=== PATIENT | female | born 1965 | race Caucasian/White ===

== ENCOUNTER 2024-07-16 13:28 | Emergency (ER) | payer OTHER ==
--- NOTE | 2024-07-16 14:16 | RAD REPORT ---
Procedure: Chest Single View HISTORY: Chest pain COMPARISON: none FINDINGS: Mild bilateral upper lobe opacities. Remainder lungs appear clear. No significant pleural effusion noted. The heart is normal size. Pacemaker leads in place IMPRESSION: Mild bilateral opacities may indicate pneumonia
--- NOTE | 2024-07-16 14:17 | RAD REPORT ---
EXAMINATION: CT HEAD WITHOUT CONTRAST CT CERVICAL SPINE WITHOUT CONTRAST CLINICAL INDICATION: Numbness TECHNIQUE: Axial CT images from the skull base to the vertex without intravenous contrast. Axial CT i mages through the cervical spine were obtained without intravenous contrast. Sagittal and coronal reformatted images were created from the data set. Coronal and sagittal reformatted images were creat ed from the data set. One or more of the following dose reduction techniques were used: Automated exposure control, adjustment of the mA and/or kV according to patient size, and/or iterative reconstr uction. Unless otherwise specified, incidental findings do not require dedicated imaging follow-up. [id number]. Comparison: none FINDINGS: Intracranial bleed not noted. Ventricles are normal in caliber. No significant hypodensity within the brain No extra-axial fluid collection. No fluid within the sinuses/mastoids No fracture or dislocation is seen involving the cervical spine. Mild spondylosis involves the cervical spine. No high-grade central/foraminal stenosis seen. Mild bilateral upper lobe opacities IMPRESSION: No acute intracranial abnormality noted A cervical fracture is not seen. No high-grade central/foraminal stenosis seen. If the patient continues to have symptoms to suggest i ntracranial/spinal pathology then MRI would be recommended If the patient continues to have symptoms to suggest acute EDGE INKER UPPERS/spinal pathology then MRI would be rec ommended Mild bilateral upper lobe opacities may indicate pneumonia
[2024-07-16] MEDS ORDERED: LORazepam 2 MG/ML VIAL ONE (14:30)
[2024-07-16 15:04] LABS: Absolute Basophils 0.1 K/uL (0-0.5); Absolute Eosinophils 0.4 K/uL (0-0.5); Absolute Lymphocytes (CBC) 2.1 K/uL (0.7-4.9); Absolute Monocytes 0.6 K/uL (0.1-1.3); Absolute Neutrophil 7.8 K/uL (1.8-8.0); Eosinophils % 3.3 % (0-4.4); Hematocrit 40.1 % (36.0-45.0); Hemoglobin 13.3 g/dL (12.0-15.0); Lymphocytes % 19.3 % (15.3-44.8); MCH 28.2 pg (27.0-35.0); MCHC 33.2 g/dL (32.0-36.0); MCV 84.9 fL (80-100); Monocytes % 5.8 % (3.3-12.3); Neutrophils % 70.6 % (41.7-73.7); Nucleated Red Blood Cells % 0.1 % (0-0); Platelets 324 thou/uL (152-406); RBC Red Blood Cell Count 4.73 M/uL (3.86-4.86); Red Cell Distribution Width 13.9 % (12.1-15.2); Specific Gravity 1.011 (1.005-1.030); Sqamous Epithelial <5 /HPF (None Seen); Urine Bacteria <20 /HPF (<20); Urine Bilirubin NEGATIVE (Negative); Urine Blood Negative (Negative); Urine Clarity Extremely Turbid (Clear); Urine Color Light-Yellow (Yellow); Urine Crystals Unidentified Few /HPF (None Seen); Urine Culture Reflex Order NOT NEEDED; Urine Glucose NEGATIVE (Negative); Urine Ketones NEGATIVE (Negative); Urine Microscopic Reflex YN ORDER UMIC; Urine Mucus Slight /HPF (None Seen); Urine Nitrite NEGATIVE (Negative); Urine Protein NEGATIVE (Negative); Urine RBC <5 /HPF (None Seen); Urine Urobilinogen Normal (Normal); Urine WBC <5 /HPF (<5); Urine WBC Clump Rare /HPF (None Seen); Urine Yeast (Budding) Few /HPF (None Seen); Urine pH 7.5 (5.0-7.0)
[2024-07-16] MEDS ORDERED: METHOCARBAMOL 1,000 MG/10 ML VIAL ONE (15:04)
[2024-07-16] MEDS ORDERED: NA CHLORIDE 0.9% 100 ML ONE (15:05)
[2024-07-16 15:08] LABS: D-Dimer 0.454 FEUug/mL (0-0.500); PT Prothrombin Time 11.5 SECONDS (9.4-12.5); Protime INR 1.03
[2024-07-16 15:16] LABS: Barbiturates NEGATIVE (NEGATIVE); Benzodiazepines NEGATIVE (NEGATIVE); Cocaine NEGATIVE (NEGATIVE); METHAMPHETAM NEGATIVE (NEGATIVE); Methadone NEGATIVE (NEGATIVE); Opiates NEGATIVE (NEGATIVE); Phencyclidine NEGATIVE (NEGATIVE); THC Cannibis NEGATIVE (NEGATIVE)
[2024-07-16 17:08] LABS: ALT/SGPT 29 U/L (13-56); AST/SGOT 23 U/L (15-37); Albumin 3.9 g/dL (3.4-5.0); Alkaline Phosphatase 91 U/L (45-117); Anion Gap 6.1 mEq/L (5.0-15.0); BUN Blood Urea Nitrogen 13 mg/dL (7-18); Bicarbonate 32 mEq/L (21-32); Bilirubin Direct < 0.2 mg/dL (0-0.2); Bilirubin Indirect, Calculated 0.2 mg/dL (0.2-0.8); Bilirubin Total 0.4 mg/dL (0.2-1.0); Globulin 3.8 g/dL (2.3-3.5); Glomerular Filtration Rate 73 ml/min (=/>90); Glucose Level 119 mg/dL (74-106); Magnesium 2.2 mg/dL (1.6-2.4); NT PRO-BNP 171 pg/mL (<125); Potassium 3.1 mEq/L (3.5-5.1); Protein, Total 7.7 g/dL (6.4-8.2); Sodium Level 139 mEq/L (136-145); Troponin High Sensitivity 9.8 pg/mL (<58.9)
[2024-07-16] MEDS ORDERED: POTASSIUM 25 MEQ EFFERV TAB ONE (17:26)
--- NOTE | 2024-07-16 18:23 | RAD REPORT ---
EXAMINATION: CTA CHEST PE CLINICAL INDICATION: Chest pain TECHNIQUE: 100 cc 370 Isovue administered intravenously. This examination was performed according to an angiographic protocol with 3D post-processing. This involves 3D reconstructions, MIPs, volume rendered images and/or shaded surface rendering. One or more of the following dose reduction techniqu es were used: Automated exposure control, adjustment of the mA and/or kV according to patient size, and/or iterative reconstruction. Unless otherwise specified, incidental findings do not require dedic ated imaging follow-up. [id number]. COMPARISON: No prior exam. FINDINGS: A pulmonary embolus is not seen. An aortic dissection not noted. No pleural effusion. No pericardial effusion. Mild to moderate left upper lobe opacities. Mild right upper and right middle lobe opacities IMPRESSION: No evidence of a pulmonary embolism Bilateral pulmonary opacities probably pneumonia
--- NOTE | 2024-07-16 18:38 | EDPHYS ---
Physician Documentation [facility] Name: Qi Quiroz Age: 58 yrs Sex: Female : 1965 Arrival Date: 07/16/2024 Time: 13:28 Bed 5 Private MD: ED Physician Jaswinder Frye HPI: 07/16 13:50 This 58 yrs old Female presents to ER via Wheelchair with complaints of Numbness. cp 15:00 The patient's problem is reported as paresthesias, in right upper extremity, in left cp upper extremity. Onset: The symptoms/episode began/occurred suddenly while in car today. 15:00 Duration: The episode is continuous. Associated signs and symptoms: Pertinent cp positives: neck and back pain times 1 week, nausea, chest heaviness, Pertinent negatives: headache, weakness, syncope. Severity of symptoms: in the emergency department the symptoms are unchanged despite home interventions. Patient's baseline: Neuro: alert and fully oriented, Motor: no deficits, Ambulation: walks without assistance, Speech: normal. Historical: - Allergies: 13:41 Latex, Natural Rubber; ap3 - PMHx: 13:41 Myocardial infarction; ap3 - PSHx: 13:41 pace maker-2020; ap3 - Immunization history:: Client reports receiving the 2nd dose of the Covid vaccine. - Infectious Disease History:: Denies. - Social history:: Smoking status: Patient denies any tobacco usage or history of. ROS: 13:55 Constitutional: HX per HPI cp 13:55 Constitutional: Negative for fever, cp 13:55 Eyes: Negative for vision loss, visual disturbance, 13:55 Cardiovascular: Positive for chest pain, 13:55 Respiratory: Positive for shortness of breath, Negative for cough, 13:55 Abdomen/GI: Positive for nausea, Negative for abdominal pain, vomiting, diarrhea, 13:55 Neuro: Positive for numbness, of the right hand, left hand, right arm and left arm, Negative for altered mental status, syncope, weakness, 13:55 All other systems are negative, Exam: 13:55 ECG was reviewed by the Attending Physician. cp 14:00 Constitutional: The patient appears in no acute distress, alert, awake, cp non-diaphoretic, non-toxic, well developed, well nourished, 14:00 Head/Face: Normocephalic, atraumatic. cp 14:00 Eyes: Periorbital structures: appear normal, Pupils: equal, round, and reactive to light and accomodation, Extraocular movements: intact throughout, Conjunctiva: normal, no exudate, no injection, Sclera: no appreciated abnormality, Lids and lashes: appear normal, bilaterally, 14:00 ENT: External ear(s): are unremarkable, Nose: is normal, Mouth: Lips: moist, Oral mucosa: pink and intact, moist, Posterior pharynx: is normal, airway is patent, no erythema, no exudate, 14:00 Neck: ROM/movement: pain, that is mild, limited range of motion, is not appreciated, 14:00 Respiratory: the patient does not display signs of respiratory distress, Respirations: normal, no use of accessory muscles, no evidence of nasal flaring, labored breathing, is not present, Breath sounds: are clear throughout, no decreased breath sounds, no stridor, no wheezing, 14:00 Abdomen/GI: Inspection: abdomen appears normal, Palpation: abdomen is soft and non-tender, in all quadrants, 14:00 Back: pain, that is mild, ROM is normal, 14:00 Skin: no rash present. 14:00 Neuro: Orientation: to person, place \T\ time. Mentation: is normal, Cerebellar function: is grossly normal, Motor: moves all fours, strength is normal, Sensation: numbness, that is mild, of the right hand and left hand, 15:05 Radiologist reports: no acute findings cp Vital Signs: 13:39 BP 113 / 74; Pulse 74; Resp 17; Temp 97.5; Pulse Ox 100% ; Weight 81.19 kg; Height 5 ap3 ft. 4 in. ; 15:01 BP 130 / 78; Pulse 79; Resp 18 S; Pulse Ox 99% on R/A; kc6 15:29 BP 129 / 72; Pulse 76; Resp 18 S; Pulse Ox 98% on R/A; kc6 16:56 BP 134 / 81; Pulse 70; Resp 18 S; Pulse Ox 100% on R/A; kc6 18:30 BP 123 / 79; Pulse 75; Resp 14 S; Temp 97.6(TE); Pulse Ox 98% on R/A; Pain 0/10; br2 20:00 BP 126 / 78; Pulse 71; Resp 16; Pulse Ox 98% ; vc1 20:45 BP 120 / 84; Pulse 80; Resp 21 S; Temp 97.3; Pulse Ox 97% on R/A; Pain 0/10; br2 13:39 Body Mass Index 30.72 (81.19 kg, 162.56 cm) ap3 18:30 Pain Scale: Adult br2 20:45 Pain Scale: Adult br2 MDM: 13:51 Medical Screening Exam initiated cp 18:38 Data reviewed: vital signs, nurses notes, lab test result(s), EKG, radiologic studies, cp CT scan, plain films, and as a result, I will discharge patient. 18:38 Differential diagnosis: CVA, TIA, spinal stenosis, acute ND, pulmonary embolism. cp Consideration of Admission/Observation Escalation of care including admission/observation considered. I considered the following discharge prescriptions or medication management in the emergency department Medications were administered in the Emergency Department. See MAR. Independent interpretation of the following test(s) in the Emergency Department EKG: See my EKG interpretation above. Counseling: I had a detailed discussion with the patient and/or guardian regarding the historical points, exam findings, and any diagnostic results supporting the discharge/admit diagnosis, lab results, radiology results, to return to the emergency department if symptoms worsen or persist or if there are any questions or concerns that arise at home. Response to treatment: the patient's symptoms have mildly improved after treatment, and as a result, I will discharge patient. 07/16 13:45 Order name: Basic Metabolic Panel; Complete Time: 17:18 cp 07/16 17:18 Interpretation: Normal except: K 3.1; GLUC 119; GFR 73. cp 07/16 13:45 Order name: CBC with Diff; Complete Time: 15:24 cp 07/16 15:24 Interpretation: Normal except: WBC 11.10. cp 07/16 13:45 Order name: D-Dimer; Complete Time: 15:24 cp 07/16 13:45 Order name: LFT's; Complete Time: 17:18 cp 07/16 13:45 Order name: Magnesium; Complete Time: 17:18 cp 07/16 13:45 Order name: NT PRO-BNP; Complete Time: 17:18 cp 07/16 13:45 Order name: PT-INR; Complete Time: 15:24 cp 10/18 13:45 Order name: Troponin HS; Complete Time: 17:18 cp 07/16 13:45 Order name: Urinalysis w/ reflexes; Complete Time: 15:24 cp 07/16 15:25 Interpretation: Normal except: [facility] Extremely Turbid; UPH 7.5; BYST Few. cp 07/16 13:45 Order name: UDS; Complete Time: 15:24 cp 07/16 13:45 Order name: XRAY Chest (1 view); Complete Time: 14:35 cp 07/16 13:45 Order name: CT Head C Spine; Complete Time: 14:35 cp 07/16 14:36 Interpretation: Reviewed report. cp 07/16 14:37 Order name: CT Chest For PE Angio; Complete Time: 18:24 cp 07/16 13:45 Order name: EKG; Complete Time: 13:46 cp 07/16 13:45 Order name: Cardiac monitoring; Complete Time: 14:31 cp 07/16 13:45 Order name: EKG - Nurse/Tech; Complete Time: 13:51 cp 07/16 13:45 Order name: IV Saline Lock; Complete Time: 14:57 cp 07/16 13:45 Order name: Labs collected and sent; Complete Time: 14:57 cp 07/16 13:45 Order name: O2 Per Protocol; Complete Time: 14:31 cp 07/16 13:45 Order name: O2 Sat Monitoring; Complete Time: 14:31 cp EC:55 Rate is 74 beats/min. Rhythm is regular, Paced. DE interval is normal. QRS interval is cp prolonged at 132 msec. QT interval is prolonged. T waves are Inverted in leads aVL, aVR. Interpreted by me. Reviewed by me. Administered Medications: 14:57 Drug: Ativan IVP 0.5 mg IVP once Route: IVP; Site: left antecubital; kc6 16:57 Follow up: Response: No adverse reaction; RASS: Alert and Calm (0) kc6 15:12 Drug: Methocarbamol IVPB 1 grams IVPB once over 1 hrs; (mix in NS 100 mL) Route: IVPB; kc6 Infused Over: 1 hrs; Site: left antecubital; 17:19 Follow up: Response: No adverse reaction; IV Status: Completed infusion; IV Intake: kc6 100ml 17:29 Drug: Potassium PO Effervescent Tablet 50 mEq PO once; dissolve in 4 ounces of water or kc6 juice Route: PO; 17:54 Follow up: Response: No adverse reaction kc6 19:19 Drug: LevaQUIN IVPB 750 mg IVPB once Route: IVPB; Site: left antecubital; br2 20:52 Follow up: IV Status: Completed infusion; IV Intake: 150ml br2 Disposition Summary: 07/16/24 18:38 Discharge Ordered Notes: Location: Home cp Condition: Stable cp Diagnosis - Pneumonia, unspecified organism cp - Hypokalemia cp - Paresthesia of skin cp - Dorsalgia, unspecified cp - Chest pain, unspecified cp - Cervicalgia cp Followup: cp - With: Private Physician - When: 2 - 3 days - Reason: Recheck today's complaints Discharge Instructions: - Discharge Summary Sheet cp - Acute Back Pain, Adult cp - Potassium Content of Foods cp - Community-Acquired Pneumonia, Adult cp - Hypokalemia cp - Heat Therapy cp Forms: - Medication Reconciliation Form cp - Antibiotic Education cp - Prescription Opioid Use cp - Patient Portal Instructions cp - Leadership Thank You Letter cp Prescriptions: - Anaprox DS 550 mg Oral Tablet - take 1 tablet ORAL route every 12 hours As needed; 20 tablet; Refills: 0, cp Product Selection Permitted - methocarbamol 750 mg Oral tablet - take 1 tablet ORAL route 3 times per day; 30 tablet; Refills: 0, Product cp Selection Permitted - levofloxacin 500 mg Oral tablet - take 1 tablet ORAL route once daily for 8-10 days; 9 tablet; Refills: 0, cp Product Selection Permitted Signatures: Dispatcher [employer] EDSD Jaswinder Dial PA PA cp Edelmira Conner RN RN ap3 Amee Ortiz RN RN kc6 Juanita Quinn RN RN br2 Corrections: (The following items were deleted from the chart) 07/17 19:54 07/16 15:00 Constitutional: HX per HPI cp cp
--- NOTE | 2024-07-16 18:38 | ER ---
Nurse's Notes [facility] Name: Qi Quiroz Age: 58 yrs Sex: Female : 1965 Arrival Date: 07/16/2024 Time: 13:28 Bed 5 Private MD: Diagnosis: Pneumonia, unspecified organism;Hypokalemia;Paresthesia of skin;Dorsalgia, unspecified;Chest pain, unspecified;Cervicalgia Presentation: 07/16 13:39 Chief complaint: Patient states: she was on her way to get a foot massage, when both of ap3 her hands and arms started feeling numb and tingling. patient reports having back pain for approx one week, and neck pain for approx a week as well. patient also states she felt flushed and nauseated. Coronavirus screen: At this time, the client does not indicate any symptoms associated with coronavirus-19. Ebola Screen: No symptoms or risks identified at this time. Initial Sepsis Screen: Does the patient meet any 2 criteria? No. Patient's initial sepsis screen is negative. Does the patient have a suspected source of infection? No. Patient's initial sepsis screen is negative. Risk Assessment: Do you want to hurt yourself or someone else? Patient reports no desire to harm self or others. Onset of symptoms is unknown. Care prior to arrival: None. Transition of care: patient was not received from another setting of care. 13:39 Method Of Arrival: Wheelchair ap3 13:50 Acuity: ALEXIA 2 ap3 Triage Assessment: 13:42 General: Appears uncomfortable, Behavior is cooperative, appropriate for age. Pain: ap3 Complains of pain in back and neck Pain began approx one week ago. Neuro: Level of Consciousness is awake, alert, obeys commands, Oriented to person, place, time, Reports numbness in right hand, left hand, right arm and left arm weakness in right hand, left hand, right arm and left arm. Cardiovascular: Patient's skin is warm and dry. Respiratory: Airway is patent Respiratory effort is even, unlabored, Respiratory pattern is regular, symmetrical. GI: Reports nausea. Historical: - Allergies: 13:41 Latex, Natural Rubber; ap3 - PMHx: 13:41 Myocardial infarction; ap3 - PSHx: 13:41 pace maker-2020; ap3 - Immunization history:: Client reports receiving the 2nd dose of the Covid vaccine. - Infectious Disease History:: Denies. - Social history:: Smoking status: Patient denies any tobacco usage or history of. Screenin:43 Abuse screen: Denies threats or abuse. Nutritional screening: No deficits noted. ap3 Tuberculosis screening: No symptoms or risk factors identified. 14:38 [facility] ED Fall Risk Assessment (Adult) History of falling in the last 3 months, kc6 including since admission No falls in past 3 months (0 pts) Confusion or Disorientation No (0 pts) Intoxicated or Sedated No (0 pts) Impaired Gait No (0 pts) Mobility Assist Device Used No (0 pt) Altered Elimination No (0 pt) Score/Fall Risk Level 0 - 2 = Low Risk Oriented to surroundings, Maintained a safe environment. Assessment: 14:58 General: Appears in no apparent distress. comfortable, well groomed, well developed, kc6 Behavior is calm, cooperative, appropriate for age. Pain: Denies pain. Neuro: Level of Consciousness is awake, alert, obeys commands, Oriented to person, place, time, situation, Appropriate for age [employer] are equal bilaterally Moves all extremities. Full function Gait is steady, Speech is normal, Facial symmetry appears normal, Pupils are PERRLA, Numbness in right hand and left hand Babinski is positive Reports dizziness, paresthesias in right hand and left hand. Cardiovascular: Reports chest pressure Heart tones S1 S2 present Capillary refill < 3 seconds Rhythm is ventricular pacer. Respiratory: Airway is patent Trachea midline Respiratory effort is even, unlabored, Respiratory pattern is regular, symmetrical. GI: No signs and/or symptoms were reported involving the gastrointestinal system. : No signs and/or symptoms were reported regarding the genitourinary system. EENT: No signs and/or symptoms were reported regarding the EENT system. Derm: No signs and/or symptoms reported regarding the dermatologic system. Skin is intact, is healthy with good turgor, Skin is pink, warm \T\ dry. Musculoskeletal: No signs and/or symptoms reported regarding the musculoskeletal system. Circulation, motion, and sensation intact. Capillary refill < 3 seconds, Range of motion: intact in all extremities. 15:28 Reassessment: Patient appears in no apparent distress at this time. No changes from kc6 previously documented assessment. Patient and/or family updated on plan of care and expected duration. Pain level reassessed. Patient is alert, oriented x 3, equal unlabored respirations, skin warm/dry/pink. 16:28 Reassessment: Patient appears in no apparent distress at this time. No changes from kc6 previously documented assessment. Patient and/or family updated on plan of care and expected duration. Pain level reassessed. Patient is alert, oriented x 3, equal unlabored respirations, skin warm/dry/pink. 18:00 Reassessment: Patient appears in no apparent distress at this time. No changes from kc6 previously documented assessment. Patient and/or family updated on plan of care and expected duration. Pain level reassessed. Patient is alert, oriented x 3, equal unlabored respirations, skin warm/dry/pink. 18:38 Reassessment: d/c pending completion of IV antibiotics. kc 18:48 Reassessment: Patient appears in no apparent distress at this time. No changes from 6 previously documented assessment. Patient and/or family updated on plan of care and expected duration. Pain level reassessed. Patient is alert, oriented x 3, equal unlabored respirations, skin warm/dry/pink. 19:19 Reassessment: Patient and/or family updated on plan of care and expected duration. Pain br2 level reassessed. Patient is alert, oriented x 3, equal unlabored respirations, skin warm/dry/pink. Patient states feeling better. Patient states symptoms have improved. 19:43 Reassessment: DISCHARGE PENDING AWAITING ON MEDICATION TO COMPLETE. ha1 20:13 Reassessment: LEVAQUIN 750MG IV STARTED, PT UP FOR DISCHARGE AND WILL BE DISCHARGED br2 WHEN COMPLETE. Vital Signs: 13:39 BP 113 / 74; Pulse 74; Resp 17; Temp 97.5; Pulse Ox 100% ; Weight 81.19 kg; Height 5 ap3 ft. 4 in. ; 15:01 BP 130 / 78; Pulse 79; Resp 18 S; Pulse Ox 99% on R/A; kc6 15:29 BP 129 / 72; Pulse 76; Resp 18 S; Pulse Ox 98% on R/A; kc6 16:56 BP 134 / 81; Pulse 70; Resp 18 S; Pulse Ox 100% on R/A; kc6 18:30 BP 123 / 79; Pulse 75; Resp 14 S; Temp 97.6(TE); Pulse Ox 98% on R/A; Pain 0/10; br2 20:00 BP 126 / 78; Pulse 71; Resp 16; Pulse Ox 98% ; vc1 20:45 BP 120 / 84; Pulse 80; Resp 21 S; Temp 97.3; Pulse Ox 97% on R/A; Pain 0/10; br2 13:39 Body Mass Index 30.72 (81.19 kg, 162.56 cm) ap3 18:30 Pain Scale: Adult br2 20:45 Pain Scale: Adult br2 ED Course: 13:30 Patient arrived in ED. im 13:38 Jaswinder Dial PA is PHCP. cp 13:38 Jaswinder Frye MD is Attending Physician. cp 13:43 Arm band placed on right wrist. ap3 13:50 Triage completed. ap3 13:51 EKG done, by ED staff, reviewed by Jaswinder DIAZ. ap3 14:02 CT Head C Spine In Process Unspecified. EDMS 14:08 XRAY Chest (1 view) In Process Unspecified. EDMS 14:27 Amee Ortiz, SHAQUILLE is Primary Nurse. kc6 14:37 Patient has correct armband on for positive identification. Bed in low position. Call kc6 light in reach. Side rails up X 1. Adult w/ patient. multiple launch rocket system crewmember on. Pulse ox on. NIBP on. Door closed. Noise minimized. Lights dimmed. Pillow given. Assisted to bathroom. 14:37 Patient maintains SpO2 saturation greater than 95% on room air. kc6 14:58 Missed attempt(s): 20 gauge in right antecubital area. Inserted saline lock: 22 gauge kc6 in left antecubital area, using aseptic technique. Blood collected. Flushed with 10 mL NS. 17:54 CT Chest For PE Angio In Process Unspecified. EDMS 19:02 Report given to SHAQUILLE Grant \T\ SHAQUILLE Rushing. kc6 19:20 Report received from yfn. br2 20:16 Provided Education on: abx indication. vc1 20:17 No provider procedures requiring assistance completed. vc1 20:51 Primary Nurse role handed off by Amee Ortiz, SHAQUILLE rv1 20:52 IV discontinued, intact, bleeding controlled, No redness/swelling at site. Pressure br2 dressing applied. Administered Medications: 14:57 Drug: Ativan IVP 0.5 mg IVP once Route: IVP; Site: left antecubital; kc6 16:57 Follow up: Response: No adverse reaction; RASS: Alert and Calm (0) kc6 15:12 Drug: Methocarbamol IVPB 1 grams IVPB once over 1 hrs; (mix in NS 100 mL) Route: IVPB; kc6 Infused Over: 1 hrs; Site: left antecubital; 17:19 Follow up: Response: No adverse reaction; IV Status: Completed infusion; IV Intake: kc6 100ml 17:29 Drug: Potassium PO Effervescent Tablet 50 mEq PO once; dissolve in 4 ounces of water or kc6 juice Route: PO; 17:54 Follow up: Response: No adverse reaction kc6 19:19 Drug: LevaQUIN IVPB 750 mg IVPB once Route: IVPB; Site: left antecubital; br2 20:52 Follow up: IV Status: Completed infusion; IV Intake: 150ml br2 Medication: 20:17 VIS not applicable for this client. vc1 Intake: 17:19 IV: 100ml; Total: 100ml. kc6 20:52 IV: 150ml; Total: 250ml. br2 Outcome: 18:38 Discharge ordered by MD. cp 20:53 Discharged to home ambulatory, br2 20:53 Condition: good 20:53 Discharge instructions given to patient, Instructed on discharge instructions, follow up and referral plans. medication usage, Demonstrated understanding of instructions, follow-up care, medications, Prescriptions given X 3, 20:53 Patient left the ED. br2 Signatures: Dispatcher [employer] EDMS Jaswinder Dial PA PA cp Prokisch, Amanda, RN RN ap3 Kristan Mac RN RN vc1 Veronica Rodriguez RN RN Amee Caballero RN RN kc6 Geovanna Heaton rvVane Ellsworth Belinda RN RN br2
[2024-07-16] MEDS ORDERED: Levofloxacin 750mg IV 750 MG/150 ML BAG IV ONE (19:14)
[2024-07-17 01:59] VITALS: TEMP 97.6; O2SAT 98
[2024-07-17 02:05] VITALS: BP 126/78
--- NOTE | 2024-07-20 13:04 | EKG ---
Test Date: 2024-07-16 Test Time: 13:48:31 Phosphoric Acid Operator: ALP MEASUREMENT RESULTS: Intervals: Rate: 74 LA: 182 QRSD: 134 QT: 472 QTc: 523 [place]: P: 54 LA: 182 QRS: -36 T: 100 INTERPRETIVE STATEMENTS: Electronic ventricular pacemaker No previous ECG available for comparison Electronically Signed On 07-20-24 12:53:26 CDT by Joon Mitchell
== END 2024-07-16 20:53 | disposition home or self-care (01) ==
LOC: ER 13:28
DX: J18.9 Pneumonia, unspecified organism (principal); E87.6 Hypokalemia; R20.2 Paresthesia of skin; M54.2 Cervicalgia; M54.9 Dorsalgia, unspecified; Z95.0 Presence of cardiac pacemaker
CPT/HCPCS: 96365; 96367; 93005; 85025; 81001; 80048; 36415; 83735; 85610; 85379; 80076; 84484; 83880; 80307; 70450; 72125; 71275; 71045; 96375; 99285; 96366; Q9967; J2800

== ENCOUNTER 2025-02-03 18:13 | Observation (INO) | payer OTHER ==
[2025-02-03 19:58] LABS: Absolute Basophils 0.1 K/uL (0-0.5); Absolute Eosinophils 0.2 K/uL (0-0.5); Absolute Lymphocytes (CBC) 1.9 K/uL (0.7-4.9); Absolute Monocytes 0.8 K/uL (0.1-1.3); Basophils % 0.9 % (0-1.3); Eosinophils % 1.6 % (0-4.4); Hematocrit 38.4 % (36.0-45.0); Hemoglobin 12.8 g/dL (12.0-15.0); Lymphocytes % 17.5 % (15.3-44.8); MCH 27.9 pg (27.0-35.0); MCHC 33.4 g/dL (32.0-36.0); MCV 83.4 fL (80-100); MPV 8.1 fL (7.6-11.3); Monocytes % 7.5 % (3.3-12.3); Neutrophils % 72.5 % (41.7-73.7); Nucleated Red Blood Cells % 0.1 % (0-0); Platelets 275 thou/uL (152-406); Red Cell Distribution Width 14.2 % (12.1-15.2)
--- NOTE | 2025-02-03 20:06 | RAD REPORT ---
EXAMINATION: ONE VIEW CHEST XR CLINICAL INDICATION: Female, 59 years old.,syncope TECHNIQUE: Frontal chest projection is submitted. Examination is limited by patient positioning and t echnique. COMPARISON: 07/16/2024 FINDINGS: The lungs are well inflated and clear. No pneumothorax or sizable effusion. The heart is normal in s ize. Mediastinal contours are unremarkable. Left chest wall pacer in place. IMPRESSION: No acute intrathoracic abnormalities.
[2025-02-03 20:07] LABS: PT Prothrombin Time 11.5 SECONDS (10-13.0); PTT, Activated Partial Thromb 30.5 SECONDS (27.2-37.4); Protime INR 1.01
[2025-02-03 20:16] LABS: ALT/SGPT 15 U/L (13-56); AST/SGOT 13 U/L (15-37); Albumin 3.7 g/dL (3.4-5.0); Albumin/Globulin Ratio 1.1 (1.1-1.8); Alkaline Phosphatase 65 U/L (45-117); Anion Gap 7.2 mEq/L (5.0-15.0); BUN Blood Urea Nitrogen 11 mg/dL (7-18); Bicarbonate 28 mEq/L (21-32); Bilirubin Total 0.5 mg/dL (0.2-1.0); Globulin 3.4 g/dL (2.3-3.5); Glomerular Filtration Rate 99 ml/min (=/>90); Glucose Level 114 mg/dL (74-106); Magnesium 2.3 mg/dL (1.6-2.4); Potassium 3.2 mEq/L (3.5-5.1); Protein, Total 7.1 g/dL (6.4-8.2); Sodium Level 136 mEq/L (136-145); Troponin High Sensitivity 5.1 pg/mL (<58.9)
--- NOTE | 2025-02-03 20:35 | RAD REPORT ---
EXAM: CT Head Brain Wo Cont HISTORY: SYNCOPE COMPARISON: None TECHNIQUE: Multiple contiguous axial images were obtained for a CT of the brain without contrast. Sag ittal and coronal reformats were performed. One or more of the following dose reduction techniques were used: Automated exposure control, adjus tment of the mA and kV according to patient size, and iterative reconstruction. Unless otherwise specified, incidental findings do not require dedicated imaging follow-up. FINDINGS: No evidence of hydrocephalus, intracranial hemorrhage, or extra-axial fluid collection. The brain is normal in morphology. The calvarium is intact. The visualized paranasal sinuses and mastoid air cells are essentially clear . IMPRESSION: No evidence of acute intracranial abnormality.
[2025-02-03 20:49] LABS: Specific Gravity 1.013 (1.005-1.030)
[2025-02-03 20:53] LABS: Bilirubin Direct < 0.2 mg/dL (0-0.2); Bilirubin Indirect, Calculated 0.3 mg/dL (0.2-0.8)
--- NOTE | 2025-02-03 21:01 | ER ---
Nurse's Notes [facility] Name: Qi Rodrigues Age: 59 yrs Sex: Female : 1965 Arrival Date: 02/03/2025 Time: 18:13 Bed 12 Private MD: Diagnosis: Syncope Near;Dizziness and giddiness;Hypokalemia Presentation: 02/03 18:26 Chief complaint: Patient states: LOGAN and R upper back pain for 3 days. 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 EMS states: 20 L AC, Zofran 4 MG IV given. BP 90's systolic. Coronavirus screen: Client denies travel out of the [place] in the last 14 days. At this time, the client does not indicate any symptoms associated with coronavirus-19. Ebola Screen: Patient denies travel to an Ebola-affected area in the 21 days before illness onset. Initial Sepsis Screen: Does the patient meet any 2 criteria? No. Patient's initial sepsis screen is negative. Does the patient have a suspected source of infection? No. Patient's initial sepsis screen is negative. Risk Assessment: Do you want to hurt yourself or someone else? Patient reports no desire to harm self or others. Onset of symptoms was February 01, 2025. 18:26 Method Of Arrival: EMS: [place] [id number] 18:26 Acuity: ALEXIA 3 ll1 Triage Assessment: 18:29 General: Appears uncomfortable, Behavior is calm, cooperative, appropriate for age. ll1 General: Reports fatigue for. Pain: Complains of pain in R upper back Quality of pain is described as aching. Neuro: Reports dizziness, headache a syncopal episode weakness. GI: Reports nausea. Musculoskeletal: Reports pain in R upper back. Historical: - Allergies: 18:28 Latex; ll1 - PMHx: 18:28 Myocardial infarction; Hypertensive disorder; ll1 - PSHx: 18:28 pace maker-2020; hysterectomy; Cholecystectomy; section; ll1 - Immunization history:: Adult Immunizations up to date. - Social history:: Smoking status: Patient denies any tobacco usage or history of. Screenin:34 [facility] ED Fall Risk Assessment (Adult) History of falling in the last 3 months, jb4 including since admission No falls in past 3 months (0 pts) Confusion or Disorientation No (0 pts) Intoxicated or Sedated No (0 pts) Impaired Gait No (0 pts) Mobility Assist Device Used No (0 pt) Altered Elimination No (0 pt) Score/Fall Risk Level 0 - 2 = Low Risk Oriented to surroundings, Maintained a safe environment. Abuse screen: Denies threats or abuse. Nutritional screening: No deficits noted. Tuberculosis screening: No symptoms or risk factors identified. Assessment: 20:46 Reassessment: Patient appears in no apparent distress at this time. Patient and/or jb4 family updated on plan of care and expected duration. Pain level reassessed. Patient is alert, oriented x 3, equal unlabored respirations, skin warm/dry/pink. 21:45 Reassessment: Patient appears in no apparent distress at this time. Patient and/or jb4 family updated on plan of care and expected duration. Pain level reassessed. Patient is alert, oriented x 3, equal unlabored respirations, skin warm/dry/pink. 22:34 Reassessment: Patient appears in no apparent distress at this time. Patient and/or jb4 family updated on plan of care and expected duration. Pain level reassessed. Patient is alert, oriented x 3, equal unlabored respirations, skin warm/dry/pink. 02/04 00:55 Reassessment: Patient appears in no apparent distress at this time. Patient and/or jb4 family updated on plan of care and expected duration. Pain level reassessed. Patient is alert, oriented x 3, equal unlabored respirations, skin warm/dry/pink. Vital Signs: 02/03 18:26 BP 164 / 96; Pulse 72; Resp 17; Temp 98.1; Pulse Ox 100% on R/A; Weight 79.38 kg; ll1 Height 5 ft. 5 in. ; Pain 8/10; 20:44 BP 139 / 84 RA Supine (auto/reg); Pulse 73; Resp 19; Pulse Ox 100% on R/A; jb4 20:45 BP 142 / 81 RA Sitting (auto/reg); Pulse 77; Resp 18; Pulse Ox 98% ; jb4 20:46 BP 150 / 88 RA Standing (auto/reg); Pulse 91; Resp 20; Pulse Ox 100% on R/A; jb4 22:34 BP 142 / 84; Pulse 74; Resp 16; Pulse Ox 98% on R/A; jb4 02/04 00:55 BP 139 / 78; Pulse 78; Resp 16; Pulse Ox 100% on R/A; jb4 02/03 18:26 Body Mass Index 29.12 (79.38 kg, 165.1 cm) ll1 05 18:26 Pain Scale: Adult ll1 ED Course: 02/03 18:26 Patient arrived in ED. ll1 18:27 Rosalina Jain MD is Attending Physician. sp3 18:28 Triage completed. ll1 18:29 Arm band placed on Patient placed in an exam room, on a stretcher. ll1 18:29 Maintain EMS IV. Dressing intact. Site clean \T\ dry. Gauge \T\ site: 20 G L AC. ll 1 19:12 Chest Single View XRAY In Process Unspecified. EDMS 19:14 EKG done, by ED staff, reviewed by Rosalina Jain MD. oe 19:29 Gary Landa, RN is Primary Nurse. jb4 19:56 CT Head Brain wo Cont In Process Unspecified. EDMS 20:33 Attending Physician role handed off by Rosalina Jain MD gene 20:33 Jaswinder Frye MD is Attending Physician. [facility] 21:00 Marquis Puri MD is Hospitalizing Provider. gene 21:56 CT Chest For PE Angio In Process Unspecified. EDMS 22:34 Patient has correct armband on for positive identification. Bed in low position. Call jb4 light in reach. Side rails up X 1. Provided Education on: need for admit. 22:34 No provider procedures requiring assistance completed. Patient admitted, IV remains in jb4 place. Administered Medications: 21:20 Drug: Potassium PO Effervescent Tablet 50 mEq PO once; dissolve in 4 ounces of water or jb4 juice Route: PO; Medication: 22:34 VIS not applicable for this client. jb Outcome: 21:00 Decision to Hospitalize by Provider. gene 22:34 Admitted to Tele accompanied by nurse, via stretcher, room 405, with chart, [facility] 22:34 Condition: stable 22:34 Discharge instructions given to patient, Instructed on the need for admit, Demonstrated understanding of instructions, 02/04 00:56 Patient left the ED. [facility] Signatures: Dispatcher [employer] EDJaswinder Callahan MD MD cha Bryson, James, RN RN [facility] Fady Rodriguez Lynsay, RN RN ll1 Rosalina Jain, MD HERNANDEZ sp3
--- NOTE | 2025-02-03 21:02 | EDPHYS ---
Physician Documentation [facility] Name: Qi Rodrigues Age: 59 yrs Sex: Female : 1965 Arrival Date: 02/03/2025 Time: 18:13 Bed 12 Private MD: ED Physician Jaswinder Frye HPI: 02/03 20:08 This 59 yrs old Female presents to ER via EMS with complaints of Near syncope, weakness.sp3 20:08 59-year-old female history of prior PR and is currently has a demand pacemaker now sp3 presents to the ED with chief complaint near syncope, back pain, chest pain. Patient symptoms are now resolved. She denies any shortness of breath, prolonged travel, prolonged immobilization, prior history of DVT or PE, abdominal pain, vomiting, diarrhea, or any other signs or symptoms on ROS at this time. Patient also states that her blood pressure has been fluctuating as is normally in the 180s and at home during the episode he got down to 90 systolic.. Historical: - Allergies: 18:28 Latex; ll1 - PMHx: 18:28 Myocardial infarction; Hypertensive disorder; ll1 - PSHx: 18:28 pace maker-2020; hysterectomy; Cholecystectomy; section; ll1 - Immunization history:: Adult Immunizations up to date. - Social history:: Smoking status: Patient denies any tobacco usage or history of. ROS: 20:11 Constitutional: Negative for fever, chills, and weight loss, Eyes: Negative for injury, sp3 pain, redness, and discharge, ENT: Negative for injury, pain, and discharge, Neck: Negative for injury, pain, and swelling, Respiratory: Negative for shortness of breath, cough, wheezing, and pleuritic chest pain, Abdomen/GI: Negative for abdominal pain, nausea, vomiting, diarrhea, and constipation, Back: Negative for injury and pain, MS/Extremity: Negative for injury and deformity, Skin: Negative for injury, rash, and discoloration, Psych: Negative for depression, anxiety, suicide ideation, homicidal ideation, and hallucinations, Allergy/Immunology: Negative for hives, rash, and allergies, Endocrine: Negative for neck swelling, polydipsia, polyuria, polyphagia, and marked weight changes, Hematologic/Lymphatic: Negative for swollen nodes, abnormal bleeding, and unusual bruising, 20:11 All other systems are negative, Exam: 20:12 Constitutional: This is a well developed, well nourished patient who is awake, alert, sp3 and in no acute distress. Head/Face: Normocephalic, atraumatic. Eyes: Pupils equal round and reactive to light, extra-ocular motions intact. Lids and lashes normal. Conjunctiva and sclera are non-icteric and not injected. Cornea within normal limits. Periorbital areas with no swelling, redness, or edema. ENT: Nares patent. No nasal discharge, no septal abnormalities noted. External auditory canals are clear. Oropharynx with no redness, swelling, or masses, exudates, or evidence of obstruction, uvula midline. Mucous membranes moist. Neck: Trachea midline, no thyromegaly or masses palpated, and no cervical lymphadenopathy. Supple, full range of motion without nuchal rigidity, or vertebral point tenderness. No Meningismus. Chest/axilla: Normal chest wall appearance and motion. Nontender with no deformity. No lesions are appreciated. Cardiovascular: Regular rate and rhythm with a normal S1 and S2. No gallops, murmurs, or rubs. Normal PMI, no JVD. No pulse deficits. Respiratory: Lungs have equal breath sounds bilaterally, clear to auscultation and percussion. No rales, rhonchi or wheezes noted. No increased work of breathing, no retractions or nasal flaring. Abdomen/GI: Soft, non-tender, with normal bowel sounds. No distension or tympany. No guarding or rebound. No evidence of tenderness throughout. Back: No spinal tenderness. No costovertebral tenderness. Full range of motion. Skin: Warm, dry with normal turgor. Normal color with no rashes, no lesions, and no evidence of cellulitis. MS/ Extremity: Pulses equal, no cyanosis. Neurovascular intact. Full, normal range of motion. Neuro: Awake and alert, GCS 15, oriented to person, place, time, and situation. Cranial nerves II-XII grossly intact. Motor strength 5/5 in all extremities. Sensory grossly intact. Cerebellar exam normal. Normal gait. Psych: Awake, alert, with orientation to person, place and time. Behavior, mood, and affect are within normal limits. 20:12 ECG was reviewed by the Attending Physician. EKG demonstrates ventricular paced rhythm at 72 bpm. Vital Signs: 18:26 BP 164 / 96; Pulse 72; Resp 17; Temp 98.1; Pulse Ox 100% on R/A; Weight 79.38 kg; ll1 Height 5 ft. 5 in. ; Pain 8/10; 20:44 BP 139 / 84 RA Supine (auto/reg); Pulse 73; Resp 19; Pulse Ox 100% on R/A; jb4 20:45 BP 142 / 81 RA Sitting (auto/reg); Pulse 77; Resp 18; Pulse Ox 98% ; jb4 20:46 BP 150 / 88 RA Standing (auto/reg); Pulse 91; Resp 20; Pulse Ox 100% on R/A; jb4 22:34 BP 142 / 84; Pulse 74; Resp 16; Pulse Ox 98% on R/A; jb4 02/04 00:55 BP 139 / 78; Pulse 78; Resp 16; Pulse Ox 100% on R/A; jb4 02/03 18:26 Body Mass Index 29.12 (79.38 kg, 165.1 cm) ll1 02/03 18:26 Pain Scale: Adult ll1 MDM: 02/03 18:35 Medical Screening Exam initiated sp3 20:14 Data reviewed: vital signs, nurses notes, lab test result(s), EKG, radiologic studies. sp3 ED course: 59-year-old female with PMH above now with near syncope, back pain. Differential diagnosis includes vasovagal syncope, acute coronary syndrome, PE, other vascular pathology, GI pathology, among others. Workup will include CT scan of the head, CT scan of the chest PE protocol, general labs, EKG and general supportive care. Consider 23-hour observation versus discharge after 2 troponin if workup negative.. 02/03 18:48 Order name: Basic Metabolic Panel; Complete Time: 20:57 3 02/03 18:48 Order name: CBC with Diff; Complete Time: 20:17 3 02/03 18:48 Order name: Hepatic Function; Complete Time: 20:57 3 02/03 18:48 Order name: Magnesium; Complete Time: 20:57 3 02/03 18:48 Order name: Test, Urine; Complete Time: 20:57 3 02/03 18:48 Order name: Protime (+inr); Complete Time: 20:17 3 02/03 18:48 Order name: Ptt, Activated; Complete Time: 20:17 sp3 02/03 18:48 Order name: Troponin High Sensitivity; Complete Time: 20:57 3 02/03 18:48 Order name: UDS sp3 02/03 18:48 Order name: CT Head Brain wo Cont; Complete Time: 20:57 sp3 02/03 18:48 Order name: Chest Single View XRAY; Complete Time: 20:17 3 02/03 20:09 Order name: CT Chest For PE Angio 3 02/03 18:48 Order name: EKG; Complete Time: 18:49 sp3 02/03 18:48 Order name: Cardiac monitoring; Complete Time: 19:12 3 02/03 18:48 Order name: EKG - Nurse/Tech; Complete Time: 19:12 3 02/03 18:48 Order name: IV Saline Lock; Complete Time: 19:29 sp3 02/03 18:48 Order name: Labs collected and sent; Complete Time: 20:22 3 02/03 18:48 Order name: NPO; Complete Time: 19:12 3 02/03 18:48 Order name: O2 Per Protocol; Complete Time: 19:29 sp3 02/03 18:48 Order name: O2 Sat Monitoring; Complete Time: 19:29 3 02/03 18:48 Order name: Orthostatics; Complete Time: 20:46 sp3 Administered Medications: 21:20 Drug: Potassium PO Effervescent Tablet 50 mEq PO once; dissolve in 4 ounces of water or jb4 juice Route: PO; Disposition Summary: 02/03/25 21:00 Hospitalization Ordered Notes: Hospitalization Status: Observation gene Provider: Marquis Puri cha Location: Telemetry/MedSurg (observation) gene Condition: Fair gene Problem: new gene Symptoms: have improved gene Bed/Room Type: Standard gene Room Assignment: 405(02/03/25 22:09) hw Diagnosis - Syncope Near gene - Dizziness and giddiness gene - Hypokalemia gene Forms: - Medication Reconciliation Form gene - SBAR form gene - Leadership Thank You Letter gene Signatures: Dispatcher [employer] Jaswinder Hou MD MD cha Bryson, James, RN RN jb4 Jaspal Cedeno RN RN ll1 Rosalina Jain MD MD sp3 Lanie Betancourt Corrections: (The following items were deleted from the chart) 18:49 18:49 BASIC METABOLIC PANEL+C.LAB.BRZ ordered. EDMS EDMS 18:49 18:49 CBC+H.LAB.BRZ ordered. EDMS EDMS 18:49 18:49 HEPATIC FUNCTION+C.LAB.BRZ ordered. EDMS EDMS 18:49 18:49 MAGNESIUM+C.LAB.BRZ ordered. EDMS EDMS 18:49 18:49 Test, Urine+UC.LAB.BRZ ordered. EDMS EDMS 18:49 18:49 PROTIME (+INR)+COAG.LAB.BRZ ordered. EDMS EDMS 18:49 18:49 PTT, ACTIVATED+COAG.LAB.BRZ ordered. EDMS EDMS 18:49 18:49 Troponin High Sensitivity+C.LAB.BRZ ordered. EDMS EDMS 18:49 18:49 URINE DRUG SCREEN+UC.LAB.BRZ ordered. EDMS EDMS 18:49 18:49 Head Brain Wo Cont+CT.RAD.BRZ ordered. EDMS EDMS 20:09 20:09 Chest For PE Angio+CT.RAD.BRZ ordered. EDMS EDMS 20:11 20:08 59-year-old female history of prior PR and is currently has a demand pacemaker sp3 now presents to the ED with chief complaint near syncope. sp3 22:09 21:00 gene malcolm
[2025-02-03] MEDS ORDERED: POTASSIUM 25 MEQ EFFERV TAB ONE (21:18)
[2025-02-03 21:26] LABS: Barbiturates NEGATIVE (NEGATIVE); Benzodiazepines NEGATIVE (NEGATIVE); Cocaine NEGATIVE (NEGATIVE); METHAMPHETAM NEGATIVE (NEGATIVE); Methadone NEGATIVE (NEGATIVE); Opiates NEGATIVE (NEGATIVE); Phencyclidine NEGATIVE (NEGATIVE); THC Cannibis NEGATIVE (NEGATIVE)
[2025-02-03] MEDS ORDERED: ONDANSETRON 4 MG/2 ML VIAL IV PRN (21:53)
--- NOTE | 2025-02-03 22:14 | P.HP ---
Certification for Inpatient Patient admitted to: Observation With expected LOS: <2 Midnights Patient will require the following post-hospital care: None Practitioner: I am a practitioner with admitting privileges, knowledge of patient current condition, hospital course, and medical plan of care. Services: Services provided to patient in accordance with Admission requirements found in Title 42 Section 412.3 of the Code of Federal Regulations <Bc Nowak - Last Filed: 02/04/25 01:01> Patient History Date of Service: 02/04/25 Reason for admission: Near syncope, nausea and vomiting, diaphoretic. History of Present Illness: Patient is a pleasant 59-year-old female with past medical history of bilateral lower extremities edema, currently on Lasix 40 mg p.o. daily, hypertension, bradycardia,and complete heart block which she attributed been caused after she took COVID booster in 09/12/2021, states immediate she took the booster, she felt like she could not walk, extreme dizziness, heart rate went down to 38, decreased blood pressure, states she was immediately rushed to the hospital, and upon arrival to the hospital her heart rate was 24 and she was in complete heart block, and had pacemaker inserted. Patient was brought to the ER today due to near syncope episode, nausea and vomiting, diaphoretic, and hypotensive. Patient states she went to work today feeling well, and after she closed at work she visited her mom, she states she ate some banana, and sat down to have a drink of water, and she suddenly felt lightheaded, profuse diaphoretic, and states " she felt like she was going to pass out", nausea and vomiting x 1 nonbilious and nonbloody content. She states her feeling of dizziness continued, which then prompted her to report to ER. Patient denies of any associated chest pain, shortness of breath, abdominal pain, blurred vision,or tinnitus. Patient states her pacemaker was intercepted last month and she was told that everything was okay, she also states that her pacemaker is also been monitored. Patient states during this episode, she checked her blood pressure and it was 91/54, but has history of high BP and currently takes losartan 100 mg p.o daily, and amlodipine 5 mg p.o daily Home medications list reviewed: Yes - Past Medical/Surgical History Has patient received pneumonia vaccine in the past: No Diabetic: No -: HTN -: Edema bilateral lower extremities. -: Bradycardia. -: Complete heart block. -: Pacemaker insertion. -: Hysterectomy. -: . -: Tubes inserted both ears. - Family History Brother -: Hypertension, Diabetes Sister -: Hypertension, Diabetes - Social History Smoking Status: Never smoker Alcohol use: No CD- Drugs: No Caffeine use: No Place of Residence: Home <Bc Nowak - Last Filed: 02/04/25 01:01> Date of Service: 02/04/25 <Marquis Puri - Last Filed: 02/04/25 07:31> Allergies Latex, Natural Rubber Allergy (Verified 02/04/25 00:12) Hives/Rash Review of Systems 10-point ROS is otherwise unremarkable Neurological: Other (Near syncope.) <Bc Nowak - Last Filed: 02/04/25 01:01> Physical Examination - Physical Exam General: Alert, In no apparent distress, Oriented x3, Cooperative HEENT: Atraumatic, Normocephalic, PERRLA, Mucous membr. moist/pink Neck: Supple, 2+ carotid pulse no bruit, Without JVD or thyroid abnormality Respiratory: Clear to auscultation bilaterally, Normal air movement Cardiovascular: No edema, Normal S1 S2, No gallops, No rubs, No murmurs Capillary refill: <2 Seconds Gastrointestinal: Normal bowel sounds, Soft and benign, Non-distended, No ascites, No tenderness, No rebound, No guarding Musculoskeletal: No clubbing, No swelling, No erythema, No tenderness, No warmth Integumentary: No rashes, No breakdown, No tenderness/swelling, No erythema, No warmth, No cyanosis Neurological: Normal gait, Normal speech, Normal strength at 5/5 x4 extr, Normal tone, Sensation intact, Cranial nerves 3-12 intact, Normal reflexes 2+, Normal affect Lymphatics: No axilla or inguinal lymphadenopathy External genitalia: Non-tender - Studies Laboratory Data (last 24 hrs) 02/03/25 02/03/25 02/03/25 19:39 19:39 19:39 WBC 11.10 H Hgb 12.8 Hct 38.4 Plt Count 275 PT 11.5 INR 1.01 APTT 30.5 Sodium 136 Potassium 3.2 L BUN 11 Creatinine 0.71 Glucose 114 H Magnesium 2.3 Total Bilirubin 0.5 AST 13 L ALT 15 Alkaline Phosphatase 65 <Bc Nowak - Last Filed: 02/04/25 01:01> - Studies Laboratory Data (last 24 hrs) 02/03/25 02/03/25 02/03/25 19:39 19:39 19:39 WBC 11.10 H Hgb 12.8 Hct 38.4 Plt Count 275 PT 11.5 INR 1.01 APTT 30.5 Sodium 136 Potassium 3.2 L BUN 11 Creatinine 0.71 Glucose 114 H Magnesium 2.3 Total Bilirubin 0.5 AST 13 L ALT 15 Alkaline Phosphatase 65 <Marquis Puri - Last Filed: 02/04/25 07:31> Female Exam - Female Pelvic Cervix: No discharge <Bc Nowak - Last Filed: 02/04/25 01:01> Assessment and Plan - Plan Patient is a pleasant 59-year-old female who reports to the ER complaining of near syncope episode, nausea vomiting nonbilious, and nonbloody content, profound diaphoretic with no associated chest pain or shortness of breath. Patient woke up in the ER potassium 3.2, troponin negative. Patient had a CT of the head impression no evidence of acute intracranial abnormality. (1)Near syncope. Patient also states that she was extremely dizzy, with profound diaphoretic during the episode when she had the near syncope. She states she has been eating and drinking adequate amount of p.o. fluid today. She states the whole episode lasted about 30 minutes. She states while she was in the ER today prior to admission, she had similar symptoms of nausea, but no vomiting, dizziness, and felt like she was going to pass out. -Consult [facility] manager action. Patient has a history of complete heart block with pacemaker insertion back in . It is unsure if patient symptoms are cardiac related or not. -Order echocardiogram in a.m. -IV NS at 75 mL/ hr x 1. Patient had some episode of nausea and vomiting at home today. (2)Chronic bilateral lower extremity edema. Patient states she takes Lasix 40 mg p.o. daily. States when she takes the Lasix she does not have any edema. No edema noted on bilateral lower or upper extremities on admission. -Continue home medication Lasix 40 mg p.o. daily. (3)Chronic essential hypertension. While in the ER, noted patient blood pressure to go up to 160/100. -Continue home medication losartan 100 mg p.o. daily. -Continue home medication amlodipine 5 mg p.o. daily. (4)Explained the entire treatment plan to the patient, solicit questions answered and voiced understanding. Discharge Plan: Home Plan to discharge in: 48 Hours - Advance Directives Does patient have a Living Will: No Does patient have a Durable POA for Healthcare: No - Code Status/Comfort Care Code Status Assessed: Yes Code Status: Full Code <Bc Nowak - Last Filed: 02/04/25 01:01> - Plan reviewed documentation as noted above In addition, reviewed some OSH records 08/2021 - is when she underwent pacemaker implantation. At that time had left heart cath - noting minimal/mild CAD, no significant onbstruction. EF: 60% on TTE. <Marquis Puri - Last Filed: 02/04/25 07:31>
--- NOTE | 2025-02-03 22:38 | RAD REPORT ---
EXAM: CT Chest For Pe Angio TECHNIQUE: CT angiogram of the chest was performed following intravenous contrast administration, inc luding sagittal and coronal as well as maximum intensity projection reformats. One or more of the following dose reduction techniques were used: Automated exposure control, adjustment of the mA and k V according to patient size, and iterative reconstruction. Unless otherwise specified, incidental findings do not require dedicated imaging follow-up. INDICATION: back pain;Chest pain COMPARISON: 07/16/2024 CT chest 02/03/2025 chest radiograph. FINDINGS: LINES/TUBES: None. PULMONARY ARTERIES: Main pulmonary arteries are normal in caliber. No filling defects within the pul monary arteries to suggest pulmonary embolus. LUNGS AND AIRWAYS: Patchy bilateral groundglass opacities most pronounced in the left upper lobe, sta ble in distribution although partially improved in extent compared to the prior CT. PLEURA: No effusion or pneumothorax. HEART AND MEDIASTINUM: The visualized thyroid gland is normal. No mediastinal, hilar, or axillary lym phadenopathy. Heart is unremarkable. No pericardial effusion. SOFT TISSUES AND BONES: No acute osseous abnormality. No significant soft tissue finding. UPPER ABDOMEN: Stable hypodense lesions within the liver (predominantly left lobe), and spleen, large st measuring 1.7 and 1.8 cm respectively. These are nonspecific but likely benign, may represent small cysts or hemangiomas. Status post cholecystectomy. IMPRESSION: No evidence of acute central pulmonary emboli. Partial improvement of bilateral patchy predominantly groundglass opacities most pronounced in the le ft upper lobe, suggesting a persistent infectious or inflammatory process. Stable incidental findings as above.
[2025-02-04 01:07] VITALS: BMI 29.1
[2025-02-04] MEDS: NA CHLORIDE 0.9% 1,000 ML IV SCH (01:23)
--- NOTE | 2025-02-04 07:48 | P.PN ---
Date of Service: 02/04/25 Subjective: Physical Exam: GEN: Alert, oriented, NAD CV: Regular rate and rhythm, no edema Pulm: Nonlabored respirations on room air, clear bilaterally ABD: soft, nontender, nondistended Integumentary: No rashes Neuro: Normal speech, normal affect Problem List: Near Syncope Hx complete heart blocks s/p pacemaker (2020) mild Hypokalemia, resolved Hypertension Chronic lower extremity edema Near Syncope Hx complete heart blocks s/p pacemaker (2020) on admission, presents with episode of near syncope, weakness associated with 1 episode of non-bloody emesis, diaphoresis, lightheadedness/dizziness Episode lasted ~30 min per patient. Denies chest pain, SOB, abdominal pain, vision changes. Reportedly had pacemaker interrogated last month and was told everything was "ok" Had LHC at time of pacemaker placement in 2020 which only noted minimal/mild CAD, no significant obstruction. 60% on TTE. BP initially low in 90s on ER arrival. Patient states usually in 170-180s at home. Labwork on admission unremarkable outside mild hypokalemia, leukocytosis. CTA chest negative for PE but did note partial improvement of groundglass opacities, suggesting a persistent infectious or inflammatory process. +stable hypodense lesions in liver/spleen Carotid u/s, CT head and CXR were all negative for acute findings. Troponins negative. Monitor on telemetry Echo ordered to eval EF / stenosis Cardiology consult Interrogate pacemaker mild Hypokalemia, resolved Potassium replaced in ED daily labs. Replete as needed. Improved Hypertension BP initially low in 90s on ER arrival. Patient states usually in 170-180s at home. BP improving, now hypertensive in 150s. resume home losartan, amlodipine VTE: Code: Full Dispo: Time Spent Managing Pts Care (In Minutes): 55
--- NOTE | 2025-02-04 08:47 | RAD REPORT ---
EXAMINATION: US CAROTID DUPLEX CLINICAL INDICATION: , 59 years old. eval flow/stenosis, near-syncope. TECHNIQUE: Real-time grayscale, color flow and spectral Doppler sonographic images were obtained of [facility] extracranial carotid system using a linear transducer. [id number]. COMPARISON: No prior exam. FINDINGS: RIGHT: Common carotid artery: 52 cm/s Internal carotid artery: 85 cm/s External carotid artery: 77 cm/s Right ICA/CCA ratio: 1.6 Plaque None Vertebral artery Antegrade LEFT: Common carotid artery: 61 cm/s Internal carotid artery: 110 cm/s External carotid artery: 74 cm/s lEFT ICA/CCA ratio: 1.8 Plaque None Vertebral artery Antegrade IMPRESSION: No hemodynamically significant stenosis (greater than 50%) within the extracranial internal carotid a [facility].
[2025-02-04] MEDS: ESCITALOPRAM 20 MG TAB PO SCH (08:53)
[2025-02-04] MEDS: LOSARTAN POTASSIUM 50 MG TABLET PO SCH (08:53)
[2025-02-04] MEDS: AMLODIPINE 5 MG TAB PO SCH (08:54)
[2025-02-04 09:00] LABS: Absolute Basophils 0.1 K/uL (0-0.5); Absolute Eosinophils 0.4 K/uL (0-0.5); Absolute Lymphocytes (CBC) 2.3 K/uL (0.7-4.9); Absolute Monocytes 0.6 K/uL (0.1-1.3); Absolute Neutrophil 4.3 K/uL (1.8-8.0); Basophils % 1.2 % (0-1.3); Eosinophils % 4.8 % (0-4.4); Hematocrit 37.7 % (36.0-45.0); Hemoglobin 12.6 g/dL (12.0-15.0); Lymphocytes % 29.9 % (15.3-44.8); MCH 28.2 pg (27.0-35.0); MCHC 33.5 g/dL (32.0-36.0); MCV 84.1 fL (80-100); MPV 8.1 fL (7.6-11.3); Monocytes % 7.7 % (3.3-12.3); Neutrophils % 56.4 % (41.7-73.7); Platelets 269 thou/uL (152-406); RBC Red Blood Cell Count 4.49 M/uL (3.86-4.86); Red Cell Distribution Width 14.2 % (12.1-15.2)
[2025-02-04] MEDS ORDERED: FUROSEMIDE 40 MG TABLET PO SCH (09:00)
[2025-02-04] MEDS ORDERED: AMLODIPINE 5 MG TAB PO SCH (09:00)
[2025-02-04 09:25] LABS: AST/SGOT 11 U/L (15-37); Albumin 3.3 g/dL (3.4-5.0); Alkaline Phosphatase 67 U/L (45-117); Anion Gap 7.8 mEq/L (5.0-15.0); BUN Blood Urea Nitrogen 12 mg/dL (7-18); Bicarbonate 30 mEq/L (21-32); Bilirubin Total 0.4 mg/dL (0.2-1.0); Globulin 3.3 g/dL (2.3-3.5); Glomerular Filtration Rate 103 ml/min (=/>90); Glucose Level 92 mg/dL (74-106); Magnesium 2.4 mg/dL (1.6-2.4); Potassium 3.8 mEq/L (3.5-5.1); Protein, Total 6.6 g/dL (6.4-8.2); Sodium Level 142 mEq/L (136-145); Troponin High Sensitivity 7.6 pg/mL (<58.9)
[2025-02-04 09:26] LABS: ALT/SGPT < 14 U/L (13-56)
[2025-02-04 12:03] VITALS: BP 134/78; TEMP 98.4
[2025-02-04 12:12] VITALS: O2SAT 99
--- NOTE | 2025-02-04 14:28 | ECHO ---
HEIGHT: 5 ft 5 in WEIGHT: 175 lb 0 oz DATE OF STUDY: 02/04/[address]: Marquis Puri MD 2-DIMENSIONAL: YES M.MODE: YES DOPPLER: YES COLOR FLOW: YES TDS: NO PORTABLE: YES DEFINITY: NO BUBBLE STUDY: NO DIAGNOSIS: NEAR SYNCOPE CARDIAC HISTORY: CATHERIZATION: SURGERY: PROSTHETIC VALVE: PACEMAKER: MEASUREMENTS (cm) DIASTOLIC (NORMALS) SYSTOLIC (NORMALS) IVSd 1.0 (0.6-1.2) LA Diam 3.1 (1.9-4.0) LVEF 55-60% LVIDd 3.7 (3.5-5.7) LVIDs 2.8 (2.0-3.5) %FS 26% LVPWd 1.2 (0.6-1.2) Ao Diam 2.6 (2.0-3.7) 2 DIMENSIONAL ASSESSMENT: RIGHT ATRIUM: NORMAL LEFT ATRIUM: NORMAL RIGHT VENTRICLE: NORMAL LEFT VENTRICLE: NORMAL TRICUSPID VALVE: MILD TRICUSPID REGURGITATION MITRAL VALVE: NORMAL PULMONIC VALVE: MILD PULMONIC INSUFFICIENCY AORTIC VALVE: NORMAL PERICARDIAL EFFUSION: NONE AORTIC ROOT: NORMAL. LEFT VENTRICULAR WALL MOTION: NORMAL. DOPPLER/COLOR FLOW: SEE BELOW. COMMENTS: 1. NORMAL LEFT VENTRICULAR EJECTION FRACTION 55-60% 2. GRADE I DIASTOLIC DYSFUNCTION. 3. MILD TRICUSPID REGURGITATION. 4. NORMAL WALL MOTION. TECHNOLOGIST: FIDEL ROSAS
--- NOTE | 2025-02-04 18:54 | CON ---
Date of Consultation: 02/04/2025 Reason For Consultation: Syncope. History Of Present Illness: A 59-year-old female with history of hypertension; lower extremity edema , on Lasix and she is on amlodipine; history of complete heart block, status post pacemaker, presente d with near syncopal episode. She said that she was standing and she felt very weak and started to g et nauseated. She checked her blood pressure was in the low 90s and then she sat down and she believ es that she lost her consciousness for short period of time. She felt nauseated and became sweaty an d then started feeling better. Apparently, her blood pressure went as low as 91/54. Past Medical History: Hypertension, bradycardia, complete heart block, pacemaker in place. Medications: Refer reconciliation sheet for detailed list. Allergies: NO KNOWN DRUG ALLERGIES. SHE IS ALLERGIC TO LATEX. Social History: She does not smoke or drink. Does not use any drugs. Family History: No premature coronary artery disease or cancer. Review of Systems: All systems reviewed and they were negative except as mentioned in the HPI. Physical Examination: Vital Signs: Reviewed. Head and Neck: Pupils are equal, reactive to light. Intact eye movements. No JVD, no cervical lymp hadenopathy. Neck is supple. Thyroid is not enlarged. Lungs: Clear to auscultation bilaterally. No rhonchi, wheezing, or crackles. No accessory muscle u se. Heart: Regular rate and rhythm. No extra sounds. Abdomen: Soft, nontender. Bowel sounds positive. No organomegaly. No masses or hernia. No rigidi ty or rebound. Extremities: No edema, clubbing, or cyanosis. Intact pulses. Skin: No rashes. Neurologic: Alert, awake, oriented x3. No acute focal deficits appreciated. Lymph Nodes: No cervical or axillary lymphadenopathy. Investigations: Troponins x2 are negative. Potassium 3.2, up to 3.8. Hemoglobin is 12.6. Assessment/recommendations: 1. Syncope due to low blood pressure. Discontinue amlodipine and she might also need to decrease the dose of losartan. This is to be determined as an outpatient. On the monitor, there is no gross abn ormality. Also, I recommend interrogation of her pacemaker to see if there is any arrhythmia and was responsible for her symptoms. She does have a shipfitter helper whom she follows up on an outpatient bas is. I recommend after she is released, to see her shipfitter helper and interrogate the pacemaker and do further management accordingly. 2. Hypertension. Blood pressure is on the low side. Discontinue amlodipine. I believe the amlodipi ne is causing her lower extremity edema for which she is getting Lasix. She probably could stop both down the road. 3. Lower extremity edema, on Lasix and she was hypokalemic. Recommend potassium supplements and mayb e after the amlodipine has stopped, Lasix can be discontinued as I believe it is the culprit for the lower extremity edema. SR/MODL Voice ID: [id number] Report ID: [id number]
--- NOTE | 2025-02-05 06:39 | P.DS ---
Admission Date: 02/03/25 Discharge Date: 02/04/25 Disposition: ROUTINE DISCHARGE Discharge Condition: GOOD Reason for Admission: Near syncope, nausea and vomiting, diaphoretic. Consultations: Cardiology - Dr. Monroe Brief History of Present Illness: 59 yo F, PMH: bilateral lower extremities edema, currently on Lasix 40 mg p.o. daily, hypertension, bradycardia,and complete heart block which she attributed been caused after she took COVID booster in 09/12/2021, states immediate she took the booster, she felt like she could not walk, extreme dizziness, heart rate went down to 38, decreased blood pressure, states she was immediately rushed to the hospital, and upon arrival to the hospital her heart rate was 24 and she was in complete heart block, and had pacemaker inserted. Patient presented to the ER today due to near syncope episode, nausea and vomiting, diaphoretic, and hypotensive. Patient states she went to work today feeling well, and after she closed at work she visited her mom, she states she ate some banana, and sat down to have a drink of water, and she suddenly felt lightheaded, profuse diaphoretic, and states " she felt like she was going to pass out", nausea and vomiting x 1 nonbilious and nonbloody content. She states her feeling of dizziness continued, which then prompted her to report to ER. Patient denies of any associated chest pain, shortness of breath, abdominal pain, blurred vision,or tinnitus. Patient states her pacemaker was intercepted last month and she was told that everything was okay, she also states that her pacemaker is also been monitored. Patient states during this episode, she checked her blood pressure and it was 91/54, but has history of high BP and currently takes losartan 100 mg p.o daily, and amlodipine 5 mg p.o daily Hospital Course: Problem List: Near Syncope Hx complete heart blocks s/p pacemaker (2020) mild Hypokalemia, resolved Hypertension Chronic lower extremity edema Physician discharge instructions: Patient presented with episode of near syncope, weakness associated with 1 episode of non-bloody emesis, diaphoresis, lightheadedness/dizziness. Unclear exact etiology. Work up this hospitalization was negative. CTA chest was negative for PE. Carotid ultrasound, CT of the head and chest xray were all negative for acute findings. Pacemaker was interrogaged an no irregular rhythms were noted. Troponin's were negative. She was noted to have mild hypokalemia, leukocytosis on admission, otherwise lab work was unremarkable. Leukocytosis was mild/borderline and reactive - resolved overnight after IV hydration. Blood pressure was noted to be low in the 90s on ER arrival. Patient states she typically runs in the 170-180s at home. Blood pressure quickly improved within a few hours with IV hydration. She was restarted on her home medications including losartan and amlodipine and blood pressure was more consistently in 120-130s. Cardiology was consulted and recommended stopping amlopidine. Echo was completed on day of discharge, and reportedly within normal limits, pending official report. Patient was feeling better, dizziness improved, blood pressure improved, and was deemed stable for discharge. She has a follow up appointment next week with her Consulting Utility Forester. Medications: Stop amlodipine Follow up: PCP 3-5 days Cardiology 2-4 weeks Please call to schedule / confirm appointments Physical Exam: GEN: Alert, oriented, NAD CV: Regular rate and rhythm, no edema Pulm: Nonlabored respirations on room air, clear bilaterally ABD: soft, nontender, nondistended Integumentary: No rashes Neuro: Normal speech, normal affect Vital Signs/Physical Exam: Temp Pulse Resp BP Pulse Ox 98.4 F 87 17 134/78 99 02/04/25 12:00 02/04/25 12:00 02/04/25 12:00 02/04/25 12:00 02/04/25 12:00 Laboratory Data at Discharge: WBC 7.60 thou/uL (4.3-10.9) 02/04/25 08:39 Hgb 12.6 g/dL (12.0-15.0) 02/04/25 08:39 Hct 37.7 % (36.0-45.0) 02/04/25 08:39 Plt Count 269 thou/uL (152-406) 02/04/25 08:39 PT 11.5 SECONDS (10-13.0) 02/03/25 19:39 INR 1.01 02/03/25 19:39 APTT 30.5 SECONDS (27.2-37.4) 02/03/25 19:39 Sodium 142 mEq/L (136-145) D 02/04/25 08:39 Potassium 3.8 mEq/L (3.5-5.1) D 02/04/25 08:39 BUN 12 mg/dL (7-18) 02/04/25 08:39 Creatinine 0.65 mg/dL (0.55-1.02) 02/04/25 08:39 Glucose 92 mg/dL (74-106) 02/04/25 08:39 Magnesium 2.4 mg/dL (1.6-2.4) 02/04/25 08:39 Total Bilirubin 0.4 mg/dL (0.2-1.0) 02/04/25 08:39 AST 11 U/L (15-37) L 02/04/25 08:39 ALT < 14 U/L (13-56) 02/04/25 08:39 Alkaline Phosphatase 67 U/L (45-117) 02/04/25 08:39 Home Medications: Escitalopram [Lexapro*] 1 tab PO DAILY 02/04/25 Furosemide [Lasix*] 1 tab PO DAILY 02/04/25 LORazepam [Ativan*] 1 tab PO BID PRN 02/04/25 Losartan Potassium 100 mg PO DAILY 02/04/25 Physician Discharge Instructions: Physician discharge instructions: Patient presented with episode of near syncope, weakness associated with 1 episode of non-bloody emesis, diaphoresis, lightheadedness/dizziness. Unclear exact etiology. Work up this hospitalization was negative. CTA chest was negative for PE. Carotid ultrasound, CT of the head and chest xray were all negative for acute findings. Pacemaker was interrogaged an no irregular rhythms were noted. Troponin's were negative. She was noted to have mild hypokalemia, leukocytosis on admission, otherwise lab work was unremarkable. Leukocytosis was mild/borderline and reactive - resolved overnight after IV hydration. Blood pressure was noted to be low in the 90s on ER arrival. Patient states she typically runs in the 170-180s at home. Blood pressure quickly improved within a few hours with IV hydration. She was restarted on her home medications including losartan and amlodipine and blood pressure was more consistently in 120-130s. Cardiology was consulted and recommended stopping amlopidine. Echo was completed on day of discharge, and reportedly within normal limits, pending official report. Patient was feeling better, dizziness improved, blood pressure improved, and was deemed stable for discharge. She has a follow up appointment next week with her Consulting Utility Forester. Medications: Stop amlodipine Follow up: PCP 3-5 days Cardiology 2-4 weeks Please call to schedule / confirm appointments Followup: NONE,NONE [Primary Care Provider] - Time spent managing pt's care (in minutes): 45
--- NOTE | 2025-02-07 12:09 | EKG ---
Test Date: 2025-02-03 Test Time: 19:10:01 Fruit Loader Machine Operator: AMILCAR MEASUREMENT RESULTS: Intervals: Rate: 72 [place]: 178 QRSD: 144 QT: 466 QTc: 510 [place]: P: 43 NJ: 178 QRS: -65 T: 83 INTERPRETIVE STATEMENTS: Atrial-sensed ventricular-paced rhythm Abnormal ECG No previous ECG available for comparison Electronically Signed On 02-07-25 12:07:16 CDT by Joon Mitchell
== END 2025-02-04 15:46 | disposition home or self-care (01) ==
LOC: ER 18:13 → 4TH 21:50
PROVIDERS: ADMIT Hospitalist; ATTEND Hospitalist
DX: R55 Syncope and collapse (principal); R11.2 Nausea with vomiting, unspecified; R42 Dizziness and giddiness; R61 Generalized hyperhidrosis; I10 Essential (primary) hypertension; R00.1 Bradycardia, unspecified; R60.0 Localized edema; I95.9 Hypotension, unspecified; E87.6 Hypokalemia; Z95.0 Presence of cardiac pacemaker
CPT/HCPCS: 93005; 93306; 85025 ×2; 80048; 36415; 83735 ×2; 81025; 85610; 80076; 85730; 84443; 84484 ×2; 84439; 80053; 80307; 70450; 71275; 71045; 93880; 99285; Q9967; J7030; G0378